=== PATIENT | male | born 1965 | race Caucasian/White ===

== ENCOUNTER → 2018-09-11 | Outpatient (CLI) | payer OTHER | LOC: GMAL 12:23 | PROVIDERS: ATTEND Family Medicine | DX: Z00.00 Encounter for general adult medical examination without abnormal findings (principal) ==

== ENCOUNTER → 2019-01-26 | Outpatient (CLI) | payer OTHER ==
--- NOTE | 2019-01-26 12:55 | RAD ---
EXAM DESCRIPTION: Pelvis CLINICAL HISTORY: 54 years Male, PAIN IN LEFT AND RIGHT COMPARISON: None. FINDINGS: A single view of the pelvis suggest modest osteopenia. The bony pelvic ring is intact with mild degenerative changes involving each SI joint inferiorly. Mild marginal osteophyte formation at the acetabular rims is present with joint space of each hip preserved. No fracture or dislocation is seen. No soft tissue pelvic mass or unusual calcification noted. IMPRESSION: Mild degenerative changes, otherwise negative pelvis one view Electronically signed by: Franky Tran MD 01/26/2019 12:53 PM [facility]
--- NOTE | 2019-01-26 12:56 | RAD ---
EXAM DESCRIPTION: Knee,Left Complete CLINICAL HISTORY: 54 years, Male, PAIN IN LEFT KNEE COMPARISON: Current examination opposite right knee TECHNIQUE: Four views left knee FINDINGS: Four views were left knee demonstrate degenerative joint narrowing of the medial joint compartment with questionable minimal joint effusion present. Mild osteophyte formation is evident. Lateral joint compartment is better preserved and no acute fracture or dislocation noted IMPRESSION: 1. Narrowed medial joint compartment with [id number] appearance and early modest degenerative changes and questionable small effusion. Otherwise negative left knee. Electronically signed by: Franky Tran MD 01/26/2019 12:55 PM [facility]
--- NOTE | 2019-01-26 12:59 | RAD ---
EXAM DESCRIPTION: Knee,Right Complete CLINICAL HISTORY: 54 years, Male, PAIN IN RIGHT KNEE COMPARISON: None TECHNIQUE: Four views right knee FINDINGS: Right knee is normally aligned. Medial joint compartment is better preserved than seen on the opposite left side. Minimal osteophyte formation is present with slight haziness in the suprapatellar region suggesting small joint effusion. Fragmentation and ossification at and just cephalad to the tibial tuberosity and indistinctness of the patellar tendon suggest the patient has either undergone previous injury or has changes of previous Lizette-Schlatter's disease. Slight blunting of the infrapatellar fat pad is present and an element of acute inflammation cannot be excluded. Correlation with any pain at the insertion of the patellar tendon recommended IMPRESSION: 1. Mild degenerative changes of the right knee with better preserved medial joint compartment and questionable minimal effusion. 2. Abnormal tibial tuberosity with fragmentation and ossification suggesting previous injury or Holland-Schlatter's disease with indistinctness of the patellar tendon and blunting of the fat pad suggesting an element of residual acute inflammation correlation with any pain at the tibial tuberosity recommended Electronically signed by: Franky Tran MD 01/26/2019 12:57 PM [facility]
== END ==
LOC: RAD 10:10
PROVIDERS: ATTEND Orthopaedic Surgery
DX: M16.0 Bilateral primary osteoarthritis of hip (principal); M17.0 Bilateral primary osteoarthritis of knee; M89.8X6 Other specified disorders of bone, lower leg

== ENCOUNTER → 2019-03-19 | Outpatient (CLI) | payer OTHER | LOC: LAB.O 09:48 | PROVIDERS: ATTEND Orthopaedic Surgery | DX: Z01.818 Encounter for other preprocedural examination (principal) ==

== ENCOUNTER 2019-04-11 05:43 | Inpatient (IN) | payer OTHER ==
[~2019-04-11 05:43] MED LIST: LACTATED RINGERS 1,000 ML ONE; SODIUM CHL 0.9% 100ML MINI-BAG 100 ML IVPB ONE; TRANEXAMIC ACID 1,000 MG/10 ML VIAL ONE; VANCOMYCIN HCL INJ 1,000 MG VIAL IVPB ONE; ceFAZolin SODIUM 1 GM VIAL ONE
[2019-04-11] MEDS ORDERED: TRANEXAMIC ACID 1,000 MG/10 ML VIAL ONE (05:44)
[2019-04-11] MEDS ORDERED: SODIUM CHLORIDE 0.9% 100ML 100 ML IVPB ONE (05:44)
[2019-04-11] MEDS ORDERED: SODIUM CHLORIDE 0.9% 250ML 250 ML ONE ×2 (05:44→16:54)
[2019-04-11] MEDS ORDERED: ACETAMINOPHEN IV 1000MG 100 ML ONE (06:26)
[2019-04-11] MEDS ORDERED: KETAMINE HCL 100 MG/ML VIAL ONE (06:26)
[2019-04-11] MEDS ORDERED: MIDAZOLAM INJ 5 MG/5 ML VIAL ONE (06:26)
[2019-04-11] MEDS ORDERED: DEXMEDETOMIDINE HCL 200 MCG/2 ML INJ IV ONE (06:26)
[2019-04-11] MEDS ORDERED: HYDROmorphone HCL INJ 2 MG/ML VIAL ONE (06:27)
[2019-04-11] MEDS ORDERED: LACTATED RINGERS 1,000 ML IVS ONE ×4 (06:28→10:35)
[2019-04-11] MEDS ORDERED: TRANEXAMIC ACID 1,000 MG/10 ML VIAL IV ONE (06:32)
[2019-04-11] MEDS ORDERED: VANCOMYCIN HCL INJ 1,000 MG VIAL IVPB ONE ×2 (06:44→16:55)
[2019-04-11] MEDS: VANCOMYCIN HCL INJ 1,000 MG VIAL IVPB ONE ×2 (07:53→09:07)
[2019-04-11] MEDS: ceFAZolin SODIUM 1 GM VIAL ONE ×3 (07:53→09:07)
[2019-04-11] MEDS: BUPIVACAINE 0.5% 30 ML VIAL INJ ONE ×2 (07:53→08:34)
[2019-04-11] MEDS: BUPIVACAINE LIPOSOME 13.3 MG/ML VIAL INJ ONE ×2 (07:53→08:34)
[2019-04-11] MEDS ORDERED: BENZOCAINE-MENTH LOZ (CEPACOL) 1 EA LOZ MT PRN (09:42)
[2019-04-11] MEDS ORDERED: HYDROcodone 5MG/APAP 325MG 1 EA TAB PO PRN (09:42)
[2019-04-11] MEDS ORDERED: MORPHINE SULFATE INJ 10 MG/ML VIAL IV PRN (09:42)
[2019-04-11] MEDS ORDERED: ZOLPIDEM TARTRATE 5 MG TAB PO PRN (09:42)
[2019-04-11] MEDS ORDERED: PROMETHAZINE HCL INJ 25 MG in SODIUM CHLORIDE 0.9% 50ML 50 ML IVPB PRN (09:42)
[2019-04-11] MEDS ORDERED: NALOXONE HCL INJ 0.4 MG/ML VIAL IV PRN (09:42)
[2019-04-11] MEDS ORDERED: ONDANSETRON INJ 4 MG/2 ML VIAL IV PRN (09:42)
[2019-04-11] MEDS ORDERED: BISACODYL SUPPOSITORY 10 MG PR PRN (09:42)
[2019-04-11] MEDS ORDERED: TRANEXAMIC ACID INJ 1,000 MG in SODIUM CHLORIDE 0.9% 100ML 100 ML IVPB ONE (09:42)
[2019-04-11] MEDS ORDERED: ACETAMINOPHEN 500 MG TAB PO PRN (09:42)
[2019-04-11] MEDS ORDERED: ACETAMINOPHEN 325 MG TAB PO PRN (09:42)
[2019-04-11] MEDS ORDERED: MAGNESIUM HYDROXIDE 30 ML UD PO PRN (09:42)
[2019-04-11] MEDS ORDERED: PROMETHAZINE HCL INJ 12.5 MG in SODIUM CHLORIDE 0.9% 50ML 50 ML IVPB PRN (09:42)
[2019-04-11] MEDS ORDERED: MORPHINE SULFATE INJ 10 MG/ML VIAL IM PRN (09:42)
[2019-04-11] MEDS ORDERED: DEX 5% W/NACL 0.45% 1000ML 1,000 ML IVS PRN (09:42)
[2019-04-11] MEDS ORDERED: ALUMINUM & MAGNESIUM HYDROXIDE 30 ML UD PO PRN (09:42)
[2019-04-11] MEDS ORDERED: TEMAZEPAM 15 MG CAP PO PRN (09:42)
[2019-04-11] MEDS ORDERED: SODIUM CHLORIDE 0.9% (FLUSH) 10 ML SYG IV PRN (09:42)
[2019-04-11] MEDS ORDERED: PROPOFOL 200 MG/20 ML VIAL IV ONE (10:00)
[2019-04-11] MEDS ORDERED: HYDROmorphone PCA 0.2 MG/ML 1 BAG BAG IVPB SCH (10:00)
[2019-04-11] MEDS ORDERED: DEXAMETHASONE INJ 10 MG/ML VIAL IV ONE (10:00)
[2019-04-11] MEDS ORDERED: MAGNESIUM SULFATE INJ 1 GM/2 ML VIAL IVPB ONE (10:00)
[2019-04-11] MEDS ORDERED: IV SET AND CAP CHANGE INJ INJ SCH (10:00)
[2019-04-11] MEDS ORDERED: EPINEPHrine HCL AMP 1 MG/ML AMP IVPB ONE (10:00)
[2019-04-11] MEDS ORDERED: raNITIdine HCL INJ 25 MG/ML VIAL IV ONE (10:00)
[2019-04-11] MEDS ORDERED: SODIUM CHLORIDE 0.9% 50 ML VIAL INJ ONE (10:00)
[2019-04-11] MEDS ORDERED: SODIUM CHL 0.9% 50ML MIN-BAG+ 50 ML IVPB ONE ×2 (15:42→18:50)
[2019-04-11] MEDS ORDERED: ceFAZolin SODIUM 1 GM VIAL ONE ×2 (15:43→18:51)
[2019-04-11] MEDS: ceFAZolin SODIUM 2 GM in SODIUM CHL 0.9% 50ML MIN-BAG+ 50 ML IVPB SCH ×2 (15:46→23:26)
--- NOTE | 2019-04-11 16:05 | RAD ---
EXAM DESCRIPTION: Fluoroscopy Up to 1Hr CLINICAL HISTORY: 54 years Male, LEFT TKA COMPARISON: None. IMPRESSION: Multiple intraoperative fluoroscopic images saved for the benefit of the surgeon. Total left knee arthroplasty. Please see procedure report for full details. Fluoroscopy time: 1 second Fluoroscopic images: 2 Total dose: 0.53 mGy Electronically signed by: Chong Covarrubias MD 04/11/2019 4:03 PM [facility]
[2019-04-11] MEDS ORDERED: CYCLOBENZAPRINE HCL 5 MG TAB ONE (16:54)
--- NOTE | 2019-04-11 16:55 | RAD ---
EXAM DESCRIPTION: Knee,Left 1 or 2 Views CLINICAL HISTORY: 54 years Male, TKA TECHNIQUE: 2 views of the left knee were performed. COMPARISON: January 26, 2019. FINDINGS: Interval left total knee arthroplasty changes noted. The hardware appears grossly intact. Moderate amount of suprapatellar joint effusion noted with air-fluid levels in the suprapatellar joint likely sequela of recent postoperative changes. Mild soft tissue swelling along the anterior aspect of knee joint also sequela of recent postoperative changes. IMPRESSION: 1. Postsurgical changes consistent with left knee total arthroplasty with intact hardware. Electronically signed by: Will Wise MD 04/11/2019 4:[address] [facility]
[2019-04-11] MEDS: VANCOMYCIN HCL INJ 1,000 MG in SODIUM CHLORIDE 0.9% 250ML 250 ML IVPB SCH (17:43)
[2019-04-11] MEDS: CYCLOBENZAPRINE HCL 10 MG TAB PO PRN (17:43)
[2019-04-11] MEDS: CELECOXIB 100 MG CAP PO SCH (17:43)
[2019-04-11] MEDS ORDERED: ENOXAPARIN SODIUM 40 MG/0.4 ML SYG SUBCU ONE (18:51)
[2019-04-11] MEDS ORDERED: DOCUSATE CALCIUM 240 MG CAP ONE (18:51)
[2019-04-11] MEDS ORDERED: ENOXAPARIN SODIUM 30 MG/0.3 ML SYG SUBCU ONE (18:52)
[2019-04-11] MEDS: HYDROcodone 10MG/APAP 325MG 1 EA TAB PO PRN (20:00)
[2019-04-11] MEDS: DOCUSATE CALCIUM 240 MG CAP PO SCH (20:01)
[2019-04-11] MEDS: ZOLPIDEM TARTRATE 10 MG TAB PO PRN (21:16)
--- NOTE | 2019-04-11 21:26 | CONS ---
SUPERVISING PHYSICIAN: Meg Aviles MD DATE OF CONSULTATION: 04/11/19 REASON FOR CONSULTATION: Medical management. HISTORY OF PRESENT ILLNESS: This is a 54-year-old male patient who underwent elective left total knee arthroplasty today. He has had chronic left knee pain with conservative measures attempted, but no significant improvement. There were no intraoperative complications and he came to the Medical/Surgical Unit in stable condition. PAST MEDICAL HISTORY: 1. Osteoarthritis. 2. Gastroesophageal reflux disease. 3. Attention deficit hyperactivity disorder. 4. Ulcers. PAST SURGICAL HISTORY: 1. Appendectomy. 2. Colonoscopies. 3. Sigmoid colectomy. 4. Orthopedic surgeries on bilateral knees. MEDICATIONS: Please see med rec list in the computer. ALLERGIES: NO KNOWN DRUG ALLERGIES. FAMILY HISTORY: Sister had coronary artery disease. SOCIAL HISTORY: Nondrinker, nonsmoker, no illicit drugs. REVIEW OF SYSTEMS: Other than the left knee discomfort, he has no complaints. PHYSICAL EXAMINATION: VITAL SIGNS: Blood pressure 145/86. Heart rate 65. Respiratory rate 16. Temperature 97.1. Oxygen saturation 96%. GENERAL: Mr. Bullock is a 54-year-old male in no acute distress. NEUROLOGIC: The patient is alert. LUNGS: Clear to auscultation bilaterally. CARDIOVASCULAR: Regular rate and rhythm. Normal S1, S2. ABDOMEN: Soft. Positive bowel sounds. EXTREMITIES: Pulses 2+. Capillary refill is less than 2 seconds. Left knee in Vladimir bandage and wrapped in ice pack. ASSESSMENT: 1. Left knee osteoarthritis status post left total knee arthroplasty. 2. Gastroesophageal reflux disease. 3. Attention deficit hyperactivity disorder. 4. Chronic headaches. PLAN: At this time, the patient will be admitted to the Medical/Surgical Unit. He will participate in physical therapy. He will continue with pain control. He is going to be anticoagulated with Lovenox approximately 12 hours after surgery. I will resume his home medications as well. We will continue to monitor his need for physical therapy to be able to assess his needs for discharge planning. #[id number] [facility]
[2019-04-11] MEDS: ENOXAPARIN SODIUM 30 MG/0.3 ML SYG SUBCU SCH (23:25)
[2019-04-12] MEDS: HYDROcodone 10MG/APAP 325MG 1 EA TAB PO PRN ×4 (04:02→22:18)
[2019-04-12] MEDS ORDERED: CYCLOBENZAPRINE HCL 5 MG TAB ONE ×2 (04:57→13:25)
[2019-04-12] MEDS ORDERED: SODIUM CHLORIDE 0.9% 250ML 250 ML ONE (04:58)
[2019-04-12] MEDS ORDERED: VANCOMYCIN HCL INJ 1,000 MG VIAL IVPB ONE (04:58)
[2019-04-12] MEDS: PANTOPRAZOLE SODIUM TAB 40 MG PO SCH (05:53)
[2019-04-12] MEDS: CYCLOBENZAPRINE HCL 10 MG TAB PO PRN ×2 (05:53→13:26)
[2019-04-12] MEDS: VANCOMYCIN HCL INJ 1,000 MG in SODIUM CHLORIDE 0.9% 250ML 250 ML IVPB SCH (05:54)
[2019-04-12] MEDS ORDERED: SODIUM CHL 0.9% 50ML MIN-BAG+ 50 ML IVPB ONE (07:21)
[2019-04-12] MEDS ORDERED: ceFAZolin SODIUM 1 GM VIAL ONE (07:22)
[2019-04-12] MEDS: traMADol HCL 50 MG TAB PO PRN (07:30)
[2019-04-12] MEDS: CELECOXIB 100 MG CAP PO SCH ×2 (07:30→17:11)
[2019-04-12] MEDS: MAGNESIUM OXIDE 400 MG TAB PO SCH (09:07)
[2019-04-12] MEDS: ceFAZolin SODIUM 2 GM in SODIUM CHL 0.9% 50ML MIN-BAG+ 50 ML IVPB SCH (09:07)
[2019-04-12] MEDS: AMPHETAMINE DEXTROAMPHETAMINE PO SCH (09:08)
[2019-04-12] MEDS: NON-FORMULARY MEDICATION 1 EA MIS (Linaclotide [Linzess] 290 MCG) PO SCH (09:08)
--- NOTE | 2019-04-12 09:13 | PN ---
SUPERVISING PHYSICIAN: Meg Aviles MD DATE: 04/12/19 SUBJECTIVE: The patient states he feels okay this morning, but definitely feels the knee. His pain is well controlled. He has not had physical therapy yet today. OBJECTIVE: VITAL SIGNS: Blood pressure 128/78. Heart rate 63. Respiratory rate 16. Temperature 98.0. Oxygen saturation 97%. GENERAL: Mr. Bullock is a 54-year-old male patient in no active distress currently. NEUROLOGIC: Alert and oriented. LUNGS: Clear to auscultation bilaterally. CARDIOVASCULAR: Regular rate and rhythm. Normal S1, S2. ABDOMEN: Soft. Positive bowel sounds. EXTREMITIES: Lower extremities with no edema. There are no paresthesias, no numbness, no tingling to the left lower extremity. Pulses 2+. Ice pack is in place once again. LABORATORY: Hemoglobin 13.9, hematocrit 41.4. ASSESSMENT: 1. Left knee osteoarthritis status post left total knee arthroplasty, postoperative day #1. 2. Gastroesophageal reflux disease. 3. Attention deficit hyperactivity disorder. 4. Chronic headaches. PLAN: The patient is stable this morning. We will continue with pain control as well as physical therapy. Continue with anticoagulation as well. #[id number] [facility]
[2019-04-12] MEDS: ENOXAPARIN SODIUM 30 MG/0.3 ML SYG SUBCU SCH ×2 (11:44→23:19)
--- NOTE | 2019-04-12 13:07 | PN ---
DATE: 04/12/19 SUBJECTIVE: Mr. Bullock is doing well today. He is up to a chair and has been walking. OBJECTIVE: Afebrile. Vital signs stable. Dressing is clean, dry and intact. ASSESSMENT: Status post total knee arthroplasty. PLAN: The plan at this point is to continue with physical therapy for weightbearing as tolerated. #[id number] [facility]
[2019-04-12] MEDS: DOCUSATE CALCIUM 240 MG CAP PO SCH (20:43)
[2019-04-12] MEDS: ZOLPIDEM TARTRATE 10 MG TAB PO PRN (22:19)
[2019-04-12] MEDS: CYCLOBENZAPRINE HCL 5 MG TAB PO PRN (22:19)
[2019-04-13] MEDS: HYDROcodone 10MG/APAP 325MG 1 EA TAB PO PRN ×2 (05:15→09:21)
[2019-04-13 05:58] VITALS: TEMP 97.6
[2019-04-13] MEDS: PANTOPRAZOLE SODIUM TAB 40 MG PO SCH (06:10)
[2019-04-13] MEDS: traMADol HCL 50 MG TAB PO PRN (07:16)
[2019-04-13] MEDS: CYCLOBENZAPRINE HCL 5 MG TAB PO PRN (07:16)
[2019-04-13] MEDS: CELECOXIB 100 MG CAP PO SCH (07:16)
[2019-04-13 07:52] VITALS: BP 140/79
--- NOTE | 2019-04-13 08:48 | OP ---
DATE OF PROCEDURE: 04/11/19 PREOPERATIVE DIAGNOSIS: 1. Osteoarthritis of the left knee. POSTOPERATIVE DIAGNOSIS: 1. Osteoarthritis of the left knee. PROCEDURE: 1. Total knee arthroplasty. SURGEON: Sonido Meadows MD. JAIL GUARD: Bam Vazquez CST, SA-C. ANESTHESIA: General anesthesia. COMPLICATIONS: None. FINDINGS: Severe osteoarthritis of the knee. INDICATION: Mr. Bullock has a history of severe pain in the knee. He has attempted conservative measures, however, has failed to gain relief. Because of his ongoing symptoms, he has requested operative intervention. After discussing the risks, benefits and alternatives to of the right hand, the patient has given informed consent for total knee arthroplasty. PROCEDURE: The patient was brought to the Operating Room and placed in supine position. General anesthesia was induced and the patient's leg was sterilely prepped and draped. Following prepping and draping, the distal femur was exposed and using an intramedullary guide, the distal femoral cut was made. The appropriate sized cutting block was measured, pinned into place, and the anterior, posterior, and chamfer cuts were made. The ACL was transected and the tibia was subluxed. Both the medial and lateral menisci were removed. An intramedullary guide was used to make the proximal tibial cut. The appropriate sized base plate was placed and a trial polyethylene was placed. The trial femur was placed, the knee was reduced, and the knee was taken through a range of motion. The knee was stable in anterior, posterior, varus and valgus stress. The patella tracked anatomically without evidence of subluxation or dislocation. After trialing, the trial components were removed and the bony surfaces were thoroughly irrigated with saline. Following irrigation, the surfaces were dried and the final components were cemented into place. The excess cement was removed and the remaining cement was allowed to cure. The knee was again taken through a range of motion to confirm stability. The wound was then irrigated with saline and closure was performed using PDS to approximate the arthrotomy followed by closure of the subcutaneous tissues with a combination of running and interrupted Monocryl sutures. Sterile dressing was placed. The patient was awoken from anesthesia and taken to Recovery. COMPONENTS: [place] [employer] knee, size 6 femur, size 6 tibia, 11 mm insert. POSTOPERATIVE PLAN: The patient will be weight-bearing as tolerated on postoperative day 1. #[id number] [facility]
[2019-04-13] MEDS ORDERED: SODIUM CHLORIDE 0.9% (FLUSH) 10 ML SYG IV SCH (09:00)
[2019-04-13] MEDS: MAGNESIUM OXIDE 400 MG TAB PO SCH (09:21)
[2019-04-13] MEDS: AMPHETAMINE DEXTROAMPHETAMINE PO SCH (09:21)
[2019-04-13] MEDS: NON-FORMULARY MEDICATION 1 EA MIS (Linaclotide [Linzess] 290 MCG) PO SCH (09:22)
[2019-04-13 18:35] VITALS: O2SAT 100
--- NOTE | 2019-04-14 11:16 | DS ---
SUPERVISING PHYSICIAN: Adelfo Aviles MD ADMISSION DIAGNOSES: 1. Left knee osteoarthritis status post left total knee arthroplasty. 2. Gastroesophageal reflux disease. 3. Attention deficit hyperactivity disorder. 4. Chronic headaches. DISCHARGE DIAGNOSES: 1. Left knee osteoarthritis status post left total knee arthroplasty, postoperative day #2. 2. Gastroesophageal reflux disease. 3. Attention deficit hyperactivity disorder. 4. Chronic headaches. REASON FOR HOSPITALIZATION: : This is a 54-year-old male patient who underwent elective left total knee arthroplasty today. He has had chronic left knee pain with conservative measures attempted, but no significant improvement. There were no intraoperative complications and he came to the Medical/Surgical Unit in stable condition. LABORATORY: Postoperative hemoglobin 13.9 and hematocrit 41.4. Preoperative toxicology screen showed positive for amphetamines, methamphetamines and he does take Ritalin. PROCEDURES: Total left knee arthroplasty performed by Dr. Sonido Meadows. Please see his operative note for details. CONSULTATION: Medical consultation and hospital services. Please see notes by Dr. Murphy Mcgarry. HOSPITAL COURSE: Mr. Bullock was admitted on 04/11/19 for an elective left total knee arthroplasty. He had no intraoperative complications. He did well with his postoperative rehabilitation efforts and had good pain control. He was found clinically stable enough to continue with outpatient management through rehabilitation center through [facility]. DISCHARGE ASSESSMENT: VITAL SIGNS: Temperature 97.6, pulse 78, blood pressure 140/79, respirations 17, oxygen saturation 100% on room air. GENERAL: Patient is resting comfortably and shows to be in no distress. CHEST: Clear to auscultation. HEART: Regular rate and rhythm. ABDOMEN: Soft, non-tender, positive bowel sounds. EXTREMITIES: Left knee had Francisco dressing in place which was clean and dry with no signs of infection. Distal pulses are strong, capillary refill brisk. NEUROLOGIC: He is alert and oriented x 3. PLAN: Mr. Bullock was discharged on 04/13/19 with instructions to followup with Dr. Meadows as scheduled on 04/27/19 at 8:00 AM. He is to resume all his medications as previously instructed. Pain management was arranged through Dr. Cortez's office as he has a pain contract. He was told to return to the Emergency Department or call Dr. Meadows for any questions or concerning symptoms. DISCHARGE DIET: Normal diet as tolerated. ACTIVITIES: After physical therapy, utilize a walker, no tub baths. Wound care as per Dr. Meadows's postoperative management and instructions. DISCHARGE MEDICATIONS: Xarelto 10 mg daily for 9 days, no refills. All other medications prior to hospitalization were continued. CONDITION ON DISCHARGE: Stable and improved. DISPOSITION: Patient is discharged home. #[id number] [facility]
[2019-04-14] MEDS ORDERED: BISACODYL SUPPOSITORY 10 MG PR ONE (21:00)
[2019-04-14] MEDS ORDERED: MAGNESIUM HYDROXIDE 30 ML UD PO ONE (21:00)
== END 2019-04-13 10:15 | disposition home or self-care (01) | DRG 470 ==
LOC: AMB 05:43 → MS 10:56
PROVIDERS: ADMIT Orthopaedic Surgery; ATTEND Nurse Practitioner Family
PROC: 0SRD0J9 Replacement of Left Knee Joint with Synthetic Substitute, Cemented, Open Approach (ICD-10-PCS; principal; 2019-04-11 06:57)
DX: M17.12 Unilateral primary osteoarthritis, left knee (principal); K21.9 Gastro-esophageal reflux disease without esophagitis; F90.9 Attention-deficit hyperactivity disorder, unspecified type; R51 Headache

== ENCOUNTER → 2019-09-25 | Outpatient (CLI) | payer OTHER | LOC: GMAL 10:30 | PROVIDERS: ATTEND Family Medicine | DX: Z00.01 Encounter for general adult medical examination with abnormal findings (principal); E53.8 Deficiency of other specified B group vitamins; E55.9 Vitamin D deficiency, unspecified; Z12.5 Encounter for screening for malignant neoplasm of prostate ==